=== PATIENT | female | born 1960 | race Caucasian/White ===

== ENCOUNTER 2020-02-25 04:46 | Emergency (ER) | payer MEDICAID ==
[~2020-02-25] VITALS: Ht 152.4 cm; Wt 59.0 kg
[2020-02-25] MEDS ORDERED: LEVO-T75 MCG PO ×2 (05:09→05:11)
[2020-02-25] MEDS ORDERED: LISINOPRIL-HCT1 EAC2 PO (05:12)
[2020-02-25 06:30] LABS: ABSOLUTE EOSINOPHILS 0.1 thou/uL (0.0-0.7); ABSOLUTE LYMPHOCYTES 1.7 thou/uL (0.8-5.3); ABSOLUTE MONOCYTES 0.5 thou/uL (0.0-1.2); ABSOLUTE NEUTROPHILS 7.1 thou/uL (1.6-8.1); BASOPHILS 0.2 %; EOSINOPHILS 1.6 %; HEMATOCRIT 42.2 % (37.0-47.0); HEMOGLOBIN 14.8 gm/dL (12.0-15.0); LYMPHOCYTES 18.1 %; MCH 31.3 pg (26.0-34.0); MCHC 34.9 g/dL (28.0-37.0); MCV 89.5 fL (80.0-100.0); MONOCYTES 5.7 %; MPV 7.5 fl. (7.2-11.1); NUCLEATED RBCS 0 /100WBC; PLATELET COUNT* 288 thou/uL (150-400); POLYS 74.4 %; RBC 4.72 mil/uL (4.20-5.00); RDW-CV 13.1 % (10.5-14.5); WBC 9.6 thou/uL (4.0-11.0)
[2020-02-25 06:40] LABS: CALCIUM 8.8 mg/dL (8.5-10.1); CREATININE 0.7 mg/dL (0.6-1.3); POTASSIUM 3.5 mmol/L (3.5-5.1)
[2020-02-25 06:44] LABS: ALBUMIN 3.8 g/dL (3.4-5.0); TOTAL BILIRUBIN 0.5 mg/dL (<0.1-1.0); TOTAL PROTEIN 7.3 g/dL (6.4-8.2)
[2020-02-25 06:51] LABS: BE -0.2 mmol/L (-2 to +3); PCO2 39.8 mmHg (35.0-45.0); PO2 77.3 mmHg (75.0-100.0); pH 7.405 (7.340-7.450)
[2020-02-25 07:10] VITALS: BP 133/72
--- NOTE | 2020-02-25 13:40 | EKG ---
[place] [address] ELECTROCARDIOGRAM REPORT Name: JOSE REED Room: [facility]#: [id number] Admission: 02/25/20 Attend Phys: Discharge: 02/25/20 Date of : 56 Date of Service: 02/25/20 0451 Report #: [id number] THIS REPORT FOR: //name// [facility] ED Test Date: 2020-02-25 Test Time: 04:51:39 Pat Name: JOSE REED Department: Room: Gender: F Puffer Tender: [place] : 1960 Requested By: Caprice Beyer Order Number: [id number] Aden MD: Wm Osborne Measurements Intervals [place] Rate: 84 P: 48 SC: 192 QRS: 39 QRSD: 96 T: 44 QT: 370 QTc: 438 Interpretive Statements Sinus rhythm RSR' in V1 or V2, right VCD or RVH Compared to ECG 07/12/2010 09:21:39 no change Electronically Signed On 02-25-2020 13:39:17 CDT by Wm Osborne [email or web address] <ELECTRONICALLY SIGNED> By: Wm Osborne MD, [facility] 02/25/20 1339 0451 0451 Wm Osborne MD, [facility] /EPI
== END 2020-02-25 07:10 | disposition home or self-care (01) ==
LOC: M.ERS 04:46
PROVIDERS: Personal Emergency Response Attendant
DX: R10.84 Generalized abdominal pain (principal); R20.2 Paresthesia of skin; I10 Essential (primary) hypertension; E03.9 Hypothyroidism, unspecified; K21.9 Gastro-esophageal reflux disease without esophagitis; F17.210 Nicotine dependence, cigarettes, uncomplicated; Z90.49 Acquired absence of other specified parts of digestive tract